=== PATIENT | female | born 1970 | race Caucasian/White ===

== ENCOUNTER 2024-03-07 22:38 | Inpatient (IN) | payer MEDICAID, SELFPAY ==
[2024-03-07 22:43] VITALS: BP 96/71; PULSE 80; RESP 18; TEMP 37; O2SAT 97; BMI 21.4
--- NOTE | 2024-03-07 23:19 | EX.ED.DYSGE1 ---
HPI History of Present Illness Chief Complaint: Substance Abuse Informant: patient Narrative Narrative: 53-year-old female presenting to the emergency room requesting detox from fentanyl. Patient has been a daily user for about the past 1-1/2 years. Prior to that she was clean for about 3 months following a detox program. She states she tries to use IV and participates in a exchange program in [place]. Sometimes she needs to skin pop. She is not currently working. Her mom has been supporting her which she recognizes as an enabler. She states she typically uses by herself as a self-medicating process. She states that for monetary reasons she can continue using. The last couple times she has tested her fentanyl it came back as tranc. Patient does not feel like she needed HIV test. She would like a nicotine patch. She has no pending legal issues and states she has not been picked up for about 5 years and her last charge was a gorman theft. Last fentanyl use was this morning. Patient is not currently on any prescription medications. She does note that she will occasionally use crack cocaine and has very rare alcohol use. [facility] Medical History Neuropathy Degenerative disc disease Hepatitis C Hepatitis B Chronic kidney disease (CKD) Allergy/AdvReac Type Severity Reaction Status Date / Time No Known Allergies Allergy Verified 03/07/24 22:41 Social History Smoking Status: Current every day smoker tobacco type: cigarettes ROS ROS ED Constitutional Constitutional ED: Denies chills, fever(s) or weight loss Eyes Eyes: Denies change in vision or diplopia ENT ENT ED: Denies ear pain, rhinorrhea or sore throat Cardiovascular Cardiovascular: Denies chest pain, orthopnea, palpitations or racing heartbeat Respiratory/Chest Respiratory/Chest: Denies cough, dyspnea or orthopnea Gastrointestinal Gastrointestinal: Denies abdominal pain, diarrhea, nausea or vomiting Genitourinary Genitourinary ED: Denies dysuria, hematuria or urinary frequency Musculoskeletal Musculoskeletal: Denies arthralgias or myalgias Integumentary Denies abscess or rash Neurologic Neurologic: Denies headache(s) or weakness Psychiatric Psychiatric: Denies anxiety, depression, suicidal ideation or suicidal thoughts Endocrine Endocrinology: Denies polydipsia, polyphagia or polyuria Allergic/Immunologic Allergic/Immunologic ED: Denies mouth swelling, tongue swelling or urticaria EXAM Physical Exam Const Vital Signs: 03/07/24 22:43 Temperature 98.6 F Temperature Source Temporal Pulse Rate 80 Respiratory Rate 18 Blood Pressure 96/71 Blood Pressure Mean 79 Pulse Ox 97 Oxygen Delivery Method Room Air Positive well nourished and well developed General Appearance ED: well developed HEENT Reports normocephalic, head/scalp atraumatic and moist mucous membranes Eyes PERRL and EOMs intact bilaterally Neck no lymphadenopathy, supple and no JVD Resp normal respiratory effort and clear to auscultation bilaterally Cardio regular rate, regular rhythm and no murmurs GI normal to inspection, nondistended, normoactive bowel sounds and non-tender Palpation: soft Back/Spine no CVA tenderness and normal ROM Extremity normal to inspection General Extremety ED: Negative for edema General Extremity: Negative for edema Neuro oriented x3 and CN's II-XII intact bilaterally Sensorium / Orientation: alert Motor Exam: strength 5/5 throughout Psych mental status grossly normal Mood & Affect: Negative for depressed or tearful Skin no rashes or lesions noted Skin Narrative: Patient with no obvious abscesses. She has chronic skin changes consistent with frequent injections on the forearms. Discharge Plan Dx/Rx/DC Orders Clinical Impression: Opiate addiction, Continuous tobacco abuse Disposition Disposition: Acute Care [facility]
[2024-03-07 23:37] LABS: Absolute Lymphocyte Count 1.63 X10^3/uL (0.83-4.51); Absolute Neutrophil Count 14.8 X10^3/uL (2.0-7.7); Basophil# 0.08 X10^3/uL; Basophil% 0.4 % (0-1); Hematocrit 40.3 % (37-47); Hemoglobin 13.4 g/dL (12.0-15.0); Lymphocyte # 1.63 X10^3/ul (0.83-4.51); Lymphocyte % 9.1 % (19-41); Mean Corp Hgb Conc 33.3 g/dL (32-36); Mean Corpuscular Hgb 30.1 pg (27.0-32.0); Mean Corpuscular Volume 90.6 fL (81-99); Mean Platelet Vol. 9.5 fl (6.2-12.0); Monocyte% 6.7 % (0-10); NRBC Flagged by Analyzer 0 % (0-5); Neutrophil # 14.82 X10^3/uL (2.7-7.7); Platelet Count 495 K/mm3 (150-450); RBC Distribution Width CV 12.9 % (11.6-14.6); RBC Distribution Width SD 42.5 fl (35.1-43.9); Red Blood Count 4.45 M/mm3 (4.2-5.4); White Blood Count 17.9 K/mm3 (4.4-11.0)
[2024-03-08 00:04] LABS: Alcohol, Blood (Medical)-Serum < 3.0 mg/dL
[2024-03-08 00:10] LABS: ALB/GLOB Ratio 0.7 RATIO (0.9-2.4); AST(SGOT) 18 U/L (15-37); Alanine Aminotransfer ALT/SGPT 27 U/L (13-56); Albumin, Serum 3.4 g/dL (3.2-5.0); Alkaline Phosphatase 90 U/L (45-117); Anion Gap 10 (5-15); BUN 9 mg/dL (7-18); BUN/Creat Ratio 10.5 RATIO (10-20); Calcium,Total 9.2 mg/dL (8.5-10.1); Chloride 98 mmol/L (98-107); Creatinine, Serum 0.86 mg/dL (0.55-1.02); EST Glomerular Filtration Rate 74 mL/min (>60); Est Glom Filt Rate - Afr Amer 89 mL/min (>60); Estimated Creatinine Clearance 59.83 ml/min; Glucose 163 mg/dL (74-106); Potassium 4.3 mmol/L (3.5-5.1); Protein, Total 8.4 g/dL (6.4-8.2); Sodium Level 132 mmol/L (136-145)
[2024-03-08 00:23] LABS: Internal QC Validated? YES +Cl - CLEAR BKGD; Pregnancy, Serum, hCG Quali. NEGATIVE Negative
[2024-03-08 00:39] VITALS: RESP 18
[2024-03-08 01:07] LABS: Color, Urine Yellow (Yellow); Glucose, Dipstick Normal (Normal); Ketone-Dipstick Negative (Negative); Leukocyte Esterase-Dipstick 500 /ul (Negative); Nitrite-Dipstick Negative (Negative); Occult Blood-Urine Negative /ul (Negative); Protein-Dipstick 15 mg/dl (Negative); Red Blood Cells-Urine 0 SEEN /hpf (0-5); Squamous Epithelial Cells - UA 0 SEEN /hpf (5-10); Urine Bilirubin Dipstick Negative (Negative); Urine Clarity Sl. Cloudy (Clear); Urine Urobilinogen Normal (Normal)
[2024-03-08 01:39] LABS: Bacteria 1+ /hpf (None Seen); Hyaline Cast 0-5 SEEN /lpf (0-5); Mucous, Urine 2+ /hpf (<or=2+); White Blood Cells 25-50 SEEN /hpf (0-5)
[2024-03-08 01:52] VITALS: PULSE 84; RESP 18; TEMP 36.1; O2SAT 98
[2024-03-08 01:53] LABS: Amphetamine Urine VISTA NEGATIVE (<1000 ng/mL); Barbiturate Urine VISTA NEGATIVE (< 200 ng/mL); Benzodiazepine Urine VISTA NEGATIVE (< 200 ng/mL)
[2024-03-08 01:54] LABS: Cocaine Urine VISTA POSITIVE (< 300 ng/mL); Ecstacy Urine VISTA NEGATIVE (< 500 ng/mL); Methadone Urine VISTA NEGATIVE (< 300 ng/mL); PCP Urine VISTA NEGATIVE (< 25 ng/mL); THC Urine VISTA NEGATIVE (< 50 ng/mL)
--- NOTE | 2024-03-08 02:13 | PCM.HP.STD ---
[facility] - General General Date of Admission: 03/08/24 Date of Service: 03/08/24 Chief Complaint: Wants Detox from Fentanyl and Crack Cocaine. HPI Narrative ROSEMARY BARLOW, is a 53 F with a past medical history of tobacco abuse, chronic hepatitis B/C, CKD; stage II, DDD, neuropathy, chronic opiate abuse; with Fentanyl and chronic Crack Cocaine abuse for the past ~18 months via IVDA and skin-popping who presents to [facility] ER complaining of wanting help with detoxification from Fentanyl and Crack. Ms. Barlow reports his symptoms began shortly after her last Fentanyl use on the morning of 03/07/2024. She went on to inform the ER physician that the last few times she was tested it came back positive for tranq which is Xylazine a horse tranquilizer that is not a controlled substance but is used to supplement the Fentanyl. She denies active legal issues at this time with her last legal issues occurred ~5 years ago with a charge for gorman theft. She denies any current pharmaceutical medications. There is no report of fever, chills, nausea, vomiting, diarrhea, constipation, abdominal pain, chest pain, palpitations or SOB. In the ER she was noted to have a UA positive for Acute Cystitis; without hematuria with a corresponding Leukocytosis of 17.9K present on admission complicated by a UDS positive for opiates and cocaine with Polysubstance Withdrawal and she was then admitted to the general medical floor for ongoing care for a stay that is expected to extend beyond 2 midnights. [facility] Medical History (Updated 03/08/24 @ 04:[address] Antonino Sellers DO) Neuropathy Degenerative disc disease Hepatitis C Hepatitis B Chronic kidney disease (CKD) Home Medications ?Medication ?Instructions ?Recorded ?Last Taken ?Type NK 03/08/24 Unknown History Allergy/AdvReac Type Severity Reaction Status Date / Time No Known Allergies Allergy Verified 03/07/24 22:41 Social History Smoking Status: Current every day smoker tobacco type: cigarettes ROS ROS Narrative Review of Systems: Constitutional: Patient denies fever or chills. Eyes: Patient denies changes in vision or discharge from eyes. ENT: Patient denies runny nose, sore throat or ear pain. Resp: Patient denies SOB or cough. CV: Patient denies chest pain, palpitations or heart racing. GI: Patient denies nausea, vomiting, diarrhea or constipation. : Patient denies dysuria, hematuria or urinary hesitancy/frequency. MSK: Patient admits to generalized weakness but she denies arthralgias or myalgias. Skin: Patient admits to previous IVDA and skin popping. She denies jaundice. Psych: Patient denies symptoms of uncontrolled depression or anxiety. Neuro: Patient denies headache, paresthesias or focal neurologic deficits. Allergy: Patient denies lip swelling or tongue swelling. Hematology: Patient denies easy bleeding or easy bruisability. Endocrinology: Patient denies polyuria, polydipsia or polyphagia. 14 point ROS otherwise negative except for positives noted above in HPI. Vital Signs Vital Signs Vital Signs: 03/07/24 22:43 03/08/24 00:39 03/08/24 01:52 Temperature 98.6 F 97 F L Temperature Source Temporal Pulse Rate 80 84 Respiratory Rate 18 18 18 Blood Pressure 96/71 Blood Pressure Mean 79 Pulse Ox 97 98 Oxygen Delivery Method Room Air Weight Weight: 117 lb 3.2 oz Body Mass Index (BMI) 21.4 Physical Exam Const alert, oriented x3, no apparent distress and average body habitus General Appearance: cooperative HEENT normocephalic, head/scalp atraumatic, hearing grossly normal bilaterally and moist oral mucous membranes Eyes PERRL and EOMs intact bilaterally Neck no lymphadenopathy Resp normal respiratory effort, no retractions, no use of accessory muscles and clear to auscultation bilaterally Cardio regular rate and regular rhythm GI normal to inspection, nondistended, normoactive bowel sounds, soft to palpation, non-tender and non-distended Extremity normal to inspection and full ROM Skin Skin Narrative: Patient has no evidence of rash or jaundice. Neuro oriented x3, CN's II-XII intact bilaterally, moves all extremities and no focal motor deficits Sensorium / Orientation: awake, alert, oriented to person, oriented to place and oriented to time Speech: speech normal Psych affect normal Results Medical Records Data Attestation: I reviewed the patient's medical records Lab / Micro Data Attestation: I reviewed the patient's lab results. 03/07/24 23:25 03/07/24 23:25 Labs: Laboratory Results - last 24 hr 03/07/24 23:25: WBC 17.9 H, RBC 4.45, Hgb 13.4, Hct 40.3, MCV 90.6, MCH 30.1, MCHC 33.3, RDW Std Deviation 42.5, RDW Coeff of [place] 12.9, Plt Count 495 H, MPV 9.5, Immature Gran % (Auto) 0.800, Neut % (Auto) 83.0 H, Lymph % (Auto) 9.1 L, [place] % (Auto) 6.7, Eos % (Auto) 0.0, Baso % (Auto) 0.4, Absolute Neuts (auto) 14.8 H, Absolute Lymphs (auto) 1.63, Nucleated RBC % 0, Sodium 132 L, Potassium 4.3, Chloride 98, Carbon Dioxide 24.0, Anion Gap 10, BUN 9, Creatinine 0.86, Estim Creat Clear Calc 59.83, Est GFR (MDRD) Af Amer 89, Est GFR (MDRD) Non-Af 74, BUN/Creatinine Ratio 10.5, Glucose 163 H, Calcium 9.2, Total Bilirubin 0.80, AST 18, ALT 27, Alkaline Phosphatase 90, Total Protein 8.4 H, Albumin 3.4, Globulin 5.0 H, Albumin/Globulin Ratio 0.7 L, Serum , Qual NEGATIVE, Ethyl Alcohol < 3.0 03/08/24 01:00: Urine Color Yellow, Urine Clarity Sl. Cloudy, Urine pH 6.0, Ur Specific [place] 1.020, Urine Protein 15 H, Urine Glucose (UA) Normal, Urine Ketones Negative, Urine Occult Blood Negative, Urine Nitrite Negative, Urine Bilirubin Negative, Urine Urobilinogen Normal, Ur Leukocyte Esterase 500 H, Urine RBC 0 SEEN, Urine WBC 25-50 SEEN, Ur Squamous Epith Cells 0 SEEN, Urine Bacteria 1+, Hyaline Casts 0-5 SEEN, Urine Mucus 2+, Urine Opiates Screen POSITIVE H, Urine Methadone Screen NEGATIVE, Ur Barbiturates Screen NEGATIVE, Ur Phencyclidine Scrn NEGATIVE, Ur Amphetamines Screen NEGATIVE, MDMA (Ecstasy) Screen NEGATIVE, U Benzodiazepines Scrn NEGATIVE, Urine Cocaine Screen POSITIVE H, U Cannabinoids Screen NEGATIVE, Ur Drug Screen Comment Assessment & Plan Assessment/Plan (1) Acute cystitis without hematuria: (2) Opiate withdrawal: (3) Cocaine abuse: (4) Continuous tobacco abuse: PLAN: Plan 1. Acute Cystitis; without hematuria with a corresponding Leukocytosis of 17.9K present on admission - Admit to general medical floor. Continue oral Bactrim DS begun in the ER and await culture and sensitivity data. 2. Acute Polysubstance Withdrawal in the setting of Chronic opiate abuse; with Fentanyl and chronic Crack Cocaine abuse for the past ~18 months via IVDA and skin-popping complicating #1 - Patient started on opiate withdrawal taper. Polysubstance Cessation was strongly encouraged. 3. Tobacco abuse - Tobacco Cessation will be strongly encouraged with Nicotine patch offered to control cravings. 4. Chronic hepatitis B/C - Noted. 5. CKD; stage II - Stable. 6. DDD - Noted. 7. Neuropathy - Noted. 8. DVT prophylaxis - Lovenox 40 mg sq daily plus SCD's. Total time: Approximately 55 minutes. Charges/Coding Visit Charges Inpatient E&M: 62352 Init Hosp L2
[2024-03-08] MEDS: Smz/Tmp Ds Tablet 1 TABLET PO ×3 (02:20→17:47)
[2024-03-08 03:08] LABS: Vista UDS pH Range 5
[2024-03-08 03:46] VITALS: BMI 21.4
[2024-03-08 03:51] VITALS: BP 133/78; PULSE 76; RESP 17; TEMP 37.1; O2SAT 96
[2024-03-08] MEDS: traZODone 100 MG Tablet PO ×2 (04:18→20:31)
[2024-03-08] MEDS: hydrOXYzine PAM 25 MG Capsule 50 MG PO ×2 (04:18→17:47)
[2024-03-08] MEDS: Buprenorphine HCl 2 MG TAB.SUBL SL ×3 (04:19→20:26)
[2024-03-08] MEDS: Dicyclomine 10 MG Capsule 20 MG PO ×2 (04:19→17:46)
[2024-03-08 06:56] LABS: Absolute Lymphocyte Count 1.78 X10^3/uL (0.83-4.51); Absolute Neutrophil Count 9.8 X10^3/uL (2.0-7.7); Basophil% 0.8 % (0-1); Hematocrit 40.7 % (37-47); Hemoglobin 13.5 g/dL (12.0-15.0); Lymphocyte # 1.78 X10^3/ul (0.83-4.51); Lymphocyte % 13.7 % (19-41); Mean Corp Hgb Conc 33.2 g/dL (32-36); Mean Corpuscular Volume 90.4 fL (81-99); Mean Platelet Vol. 9.8 fl (6.2-12.0); Monocyte# 1.22 X10^3/uL; Monocyte% 9.4 % (0-10); NRBC Flagged by Analyzer 0 % (0-5); Neutrophil # 9.81 X10^3/uL (2.7-7.7); Neutrophil % 75.1 % (47-70); Platelet Count 487 K/mm3 (150-450)
[2024-03-08 07:22] LABS: ALB/GLOB Ratio 0.7 RATIO (0.9-2.4); AST(SGOT) 19 U/L (15-37); Alanine Aminotransfer ALT/SGPT 25 U/L (13-56); Albumin, Serum 3.4 g/dL (3.2-5.0); Alkaline Phosphatase 92 U/L (45-117); Anion Gap 8 (5-15); BUN 6 mg/dL (7-18); BUN/Creat Ratio 10.3 RATIO (10-20); Calcium,Total 9.6 mg/dL (8.5-10.1); Chloride 102 mmol/L (98-107); Creatinine, Serum 0.58 mg/dL (0.55-1.02); EST Glomerular Filtration Rate 115 mL/min (>60); Est Glom Filt Rate - Afr Amer 139 mL/min (>60); Estimated Creatinine Clearance 88.72 ml/min; Globulin 5.2 g/dL (2.2-4.2); Glucose 160 mg/dL (74-106); Magnesium 2.1 mg/dL (1.6-2.6); Potassium 3.7 mmol/L (3.5-5.1); Protein, Total 8.6 g/dL (6.4-8.2); Sodium Level 137 mmol/L (136-145)
[2024-03-08] MEDS: cloNIDine HCl 0.1 MG Tablet PO ×2 (07:56→17:47)
[2024-03-08] MEDS: Lactobacillis Acidophilus 1 CAP PO ×4 (07:56→20:27)
[2024-03-08 08:50] VITALS: BP 142/84; PULSE 77; RESP 16; TEMP 36.9; O2SAT 95
--- NOTE | 2024-03-08 11:29 | PN.HOSP_ITS ---
Reason for Visit Reason for Visit: Diagnoses Opioid use, unspecified with withdrawal (03/08/24) Cocaine abuse, uncomplicated (03/08/24) Acute cystitis without hematuria (03/08/24) Tobacco use (03/08/24) Subjective Subjective Saw patient at bedside this morning. Patient was sitting up comfortably in bed, in no acute distress. Her main concern this morning was that she had moderate nasal congestion; she takes a nasal spray at home and was asking for this. States her withdrawal symptoms have been fairly well-controlled with the Subutex taper and other as needed medications. No other acute concerns this morning. Objective Data Objective Data Vital Signs: Vital Signs Temp Pulse Resp BP Pulse Ox O2 Del Method 98.4 F 77 16 142/84 H 95 Room Air 03/08/24 08:50 03/08/24 08:50 03/08/24 08:50 03/08/24 08:50 03/08/24 08:50 03/08/24 08:50 Oxygen Delivery Method Room Air Weight: 53.184 kg Body Mass Index (BMI) 21.4 Intake & Output: Intake and Output for Last 24 Hours 03/06/24 03/07/24 03/08/24 23:59 23:59 23:59 Intake Total 100 / 100 Balance 100 / 100 Lab / Micro Data 03/08/24 06:07 03/08/24 06:07 Labs: Laboratory Results - last 24 hr 03/07/24 23:25: WBC 17.9 H, RBC 4.45, Hgb 13.4, Hct 40.3, MCV 90.6, MCH 30.1, MCHC 33.3, RDW Std Deviation 42.5, RDW Coeff of [place] 12.9, Plt Count 495 H, MPV 9.5, Immature Gran % (Auto) 0.800, Neut % (Auto) 83.0 H, Lymph % (Auto) 9.1 L, [place] % (Auto) 6.7, Eos % (Auto) 0.0, Baso % (Auto) 0.4, Absolute Neuts (auto) 14.8 H, Absolute Lymphs (auto) 1.63, Nucleated RBC % 0, Sodium 132 L, Potassium 4.3, Chloride 98, Carbon Dioxide 24.0, Anion Gap 10, BUN 9, Creatinine 0.86, Estim Creat Clear Calc 59.83, Est GFR (MDRD) Af Amer 89, Est GFR (MDRD) Non-Af 74, BUN/Creatinine Ratio 10.5, Glucose 163 H, Calcium 9.2, Total Bilirubin 0.80, AST 18, ALT 27, Alkaline Phosphatase 90, Total Protein 8.4 H, Albumin 3.4, G lobulin 5.0 H, Albumin/Globulin Ratio 0.7 L, Serum , Qual NEGATIVE, Ethyl Alcohol < 3.0 03/08/24 01:00: Urine Color Yellow, Urine Clarity Sl. Cloudy, Urine pH 6.0, Ur Specific [place] 1.020, Urine Protein 15 H, Urine Glucose (UA) Normal, Urine Ketones Negative, Urine Occult Blood Negative, Urine Nitrite Negative, Urine Bilirubin Negative, Urine Urobilinogen Normal, Ur Leukocyte Esterase 500 H, Urine RBC 0 SEEN, Urine WBC 25-50 SEEN, Ur Squamous Epith Cells 0 SEEN, Urine Bacteria 1+, Hyaline Casts 0-5 SEEN, Urine Mucus 2+, Urine Opiates Screen POSITIVE H, Urine Methadone Screen NEGATIVE, Ur Barbiturates Screen NEGATIVE, Ur Phencyclidine Scrn NEGATIVE, Ur Amphetamines Screen NEGATIVE, MDMA (Ecstasy) Screen NEGATIVE, U Benzodiazepines Scrn NEGATIVE, Urine Cocaine Screen POSITIVE H, U Cannabinoids Screen NEGATIVE, Ur Drug Screen Comment 03/08/24 06:07: WBC 13.0 H, RBC 4.50, Hgb 13.5, Hct 40.7, MCV 90.4, MCH 30.0, MCHC 33.2, RDW Std Deviation 43.0, RDW Coeff of [place] 13.0, Plt Count 487 H, MPV 9.8, Immature Gran % (Auto) 1.000 H, Neut % (Auto) 75.1 H, Lymph % (Auto) 13.7 L , [place] % (Auto) 9.4, Eos % (Auto) 0.0, Baso % (Auto) 0.8, Absolute Neuts (auto) 9.8 H, Absolute Lymphs (auto) 1.78, Nucleated RBC % 0, Sodium 137, Potassium 3.7, Chloride 102, Carbon Dioxide 27.0, Anion Gap 8, BUN 6 L, Creatinine 0.58, Estim Creat Clear Calc 88.72, Est GFR (MDRD) Af Amer 139, Est GFR (MDRD) Non-Af 115, BUN/Creatinine Ratio 10.3, Glucose 160 H, Calcium 9.6, Phosphorus 3.0, Magnesium 2.1, Total Bilirubin 0.70, AST 19, ALT 25, Alkaline Phosphatase 92, T otal Protein 8.6 H, Albumin 3.4, Globulin 5.2 H, Albumin/Globulin Ratio 0.7 L, TSH 1.020 Physical Exam Const alert, oriented x3, no apparent distress and average body habitus Constitutional Narrative: Middle-age female, unkempt appearing, mildly fatigued appearing, otherwise sitting up comfortably in bed, conversing normally, in no acute distress. General Appearance: cooperative and comfortable HEENT normocephalic, head/scalp atraumatic, hearing grossly normal bilaterally, nasal mucous membranes and turbinates normal and moist oral mucous membranes Eyes PERRL, EOMs intact bilaterally and conjunctivae normal Neck full ROM Chest inspection of chest normal Resp normal respiratory effort, normal air movement, no use of accessory muscles and clear to auscultation bilaterally Cardio regular rate, regular rhythm, no murmurs and peripheral pulses 2+ throughout GI normal to inspection, nondistended, normoactive bowel sounds, soft to palpation, non-tender and non-distended Back/Spine normal ROM Extremity normal to inspection, full ROM and no pedal edema Skin Skin Narrative: Skin changes consistent with frequent injections on the forearms. No obvious abscesses noted. Neuro moves all extremities and no focal motor deficits Speech: speech normal Psych mental status grossly normal Assessment & Plan Assessment/Plan (1) Opiate addiction: (2) Opiate withdrawal: (3) Cocaine abuse: (4) Acute cystitis without hematuria: (5) Continuous tobacco abuse: PLAN: Plan Patient is a 53-year-old female who presented to [facility] ED on 03/07/2024 for opiate detoxification. 1. Chronic opiate abuse with withdrawal and desire for detoxification, polysubstance abuse ? Case management and addiction medicine following. UDS positive for opiates and cocaine. Patient reported daily IV fentanyl abuse and chronic crack cocaine abuse for the past 18 months. Treating with Subutex taper and other as needed medications per opiate withdrawal order set with good control of symptoms. Per addiction medicine, patient reports going through outpatient treatment in the past and this did not help her so she is not interested in treatment after discharge. 2. Concern for acute cystitis ? UA on admit showed 500 leukocyte esterase, negative nitrites and 1+ bacteria. Patient does report mild UTI type symptoms. Urine culture pending. Continue treatment with p.o. Bactrim for now. 3. Tobacco abuse ? Current smoker. Treating with nicotine patch while inpatient per patient request. 4. Reported history of chronic hepatitis B and C ? LFTs normal on admission. No inpatient needs, recommend outpatient follow-up. DVT prophylaxis: Lovenox CODE STATUS: Full code, verified Expected disposition: Home, 2 to 3 days Total clinical time spent by myself addressing the patient's medical issues, reviewing all the data, and collaborating with patient's care team: 25 minutes. Charges/Coding Visit Charges Inpatient E&M: 31815 Subs Hosp L1
--- NOTE | 2024-03-08 12:18 | ADDICTION ---
Met with Pt to complete RAMP assessments. Pt was A&Ox4. All assessments complete. Pt reports that she has been through tx so many times and they don't do anything for me and she is not interested in outpatient tx. She reports that she will get back to work and go to some meetings.
[2024-03-08] MEDS: Gabapentin 300 MG Capsule PO (12:40)
[2024-03-08] MEDS: Methocarbamol 750 MG Tablet PO ×2 (12:40→20:31)
[2024-03-08] MEDS: Fluticasone 0.05% 1 SPRAY NASAL.SRY NASAL (12:44)
[2024-03-08 15:00] VITALS: BP 138/86; PULSE 88; RESP 18; TEMP 36.8; O2SAT 98
[2024-03-08 20:00] VITALS: BP 127/85; PULSE 63; RESP 18; TEMP 36.6; O2SAT 98
[2024-03-09] VITALS: BP 146/94; PULSE 67; RESP 16; TEMP 36.7; O2SAT 96
[2024-03-09 04:08] VITALS: BP 145/89; PULSE 70; RESP 16; TEMP 36.7; O2SAT 93
[2024-03-09] MEDS: Acetaminophen 325 MG Tablet 650 MG PO (04:27)
[2024-03-09] MEDS: Buprenorphine HCl 2 MG TAB.SUBL SL ×2 (04:27→12:30)
[2024-03-09] MEDS: Dicyclomine 10 MG Capsule 20 MG PO (04:27)
[2024-03-09] MEDS: Fluticasone 0.05% 1 SPRAY NASAL.SRY NASAL (06:41)
[2024-03-09 07:38] VITALS: BP 151/89; PULSE 71; RESP 16; TEMP 36.9; O2SAT 97
[2024-03-09] MEDS: Smz/Tmp Ds Tablet 1 TABLET PO (07:40)
[2024-03-09] MEDS: Lactobacillis Acidophilus 1 CAP PO (09:39)
--- NOTE | 2024-03-09 11:55 | DCINST_ITS ---
Discharge Instructions Follow Up Care Test Results: Test results from this visit will be discussed in further detail at your follow- up appointment, if applicable. Discharge Plan Admission Admit Date/Time: 03/08/24 03:00 Attending Provider: Sean Cunningham Primary Care Provider: Care Physician,No Primary Consulting Providers: Antonino Sellers Discharge Orders/Prescriptions Prescriptions: No Action NK Referrals / Follow Up: Care Physician,No Primary [Primary Care Provider] -
--- NOTE | 2024-03-09 11:55 | DS.PCM_ITS ---
Providers Date of Admission: 03/08/24 Date of Discharge: 03/09/24 Primary Care Physician: No Primary Care Phys Reason For Visit: ACUTE OPIATE DETOX & UTI Diagnosis Discharge Diagnosis (1) Opiate addiction: Status: Acute Code(s): F11.20 - Opioid dependence, uncomplicated (2) Opiate withdrawal: Status: Acute Code(s): F11.93 - Opioid use, unspecified with withdrawal (3) Cocaine abuse: Status: Acute Code(s): F14.10 - Cocaine abuse, uncomplicated (4) Acute cystitis without hematuria: Status: Acute Code(s): N30.00 - Acute cystitis without hematuria (5) Continuous tobacco abuse: Status: Acute Code(s): Z72.0 - Tobacco use Medications at Discharge Home Medications NK 03/08/24 Hospital Course Operations None Procedures None Summary of Care Provided Minutes Spent on Discharge: 25 Hospital Course: Patient is a 53-year-old female who presented to [facility] ED on 03/07/2024 for opiate detoxification. Hospital course as noted below. Patient discharged home in stable condition on 03/09. 1. Chronic opiate abuse with withdrawal and desire for detoxification, polysubstance abuse ? Case management and addiction medicine followed. UDS positive for opiates and cocaine. Patient reported daily IV fentanyl abuse and chronic crack cocaine abuse for the past 18 months. Treated with Subutex taper and other as needed medications per opiate withdrawal order set with good control of symptoms. Per addiction medicine, patient reports going through outpatient treatment in the past and this did not help her so she was not interested in treatment after discharge. Given minimal withdrawal symptoms, patient was okay for discharge on afternoon of 03/09. 2. Concern for acute cystitis ? UA on admit showed 500 leukocyte esterase, negative nitrites and 1+ bacteria. However, urine culture showed no growth. Treated with Bactrim while inpatient, no need for further antibiotics on discharge. 3. Tobacco abuse ? Current smoker. Treated with nicotine patch while inpatient per patient request. 4. Reported history of chronic hepatitis B and C ? LFTs normal on admission. No inpatient needs, recommend outpatient follow-up. Total clinical time spent by myself addressing the patient's medical issues, reviewing all the data, and collaborating with patient's care team: 25 minutes. Physical Exam Const alert, oriented x3, no apparent distress and average body habitus Constitutional Narrative: Middle-age female, somewhat unkempt appearing, energy improved from admission, otherwise sitting up comfortably in bed, conversing normally, in no acute distress. General Appearance: cooperative and comfortable HEENT normocephalic, head/scalp atraumatic, hearing grossly normal bilaterally, nasal mucous membranes and turbinates normal and moist oral mucous membranes Eyes PERRL, EOMs intact bilaterally and conjunctivae normal Neck full ROM Chest inspection of chest normal Resp normal respiratory effort, normal air movement, no use of accessory muscles and clear to auscultation bilaterally Cardio regular rate, regular rhythm, no murmurs and peripheral pulses 2+ throughout GI normal to inspection, nondistended, normoactive bowel sounds, soft to palpation, non-tender and non-distended Back/Spine normal ROM Extremity normal to inspection, full ROM and no pedal edema Skin Skin Narrative: Skin changes consistent with frequent injections on the forearms. No obvious abscesses noted. Stable. Neuro moves all extremities and no focal motor deficits Speech: speech normal Psych mental status grossly normal Weight / BMI Weight Weight: 53.184 kg Body Mass Index (BMI) 21.4 ABG / Lab / Microbiology Data 03/08/24 06:07 03/08/24 06:07 Microbiology: Microbiology 03/08/24 01:00 Urine, Clean Catch Urine Culture - Preliminary Culture exhibits no growth. Meaningful Use Info Meaningful Use Meaningful Use Diagnoses (Choose all that apply): None applicable Ischemic Stroke Statin Dosing Therapy Reference: STATIN DOSE THERAPY REFERENCE: * Patients > 75 years receive moderate or high dose statin therapy. * Patients 75 years or YOUNGER should receive HIGH intensity statin dose unless contraindicated. You will be required to document reason for non-treatment if statin daily dose does not meet guidelines. HIGH DOSE STATIN THERAPY DAILY Atorvastatin > than or = to 40 mg Rosuvastatin > than or = to 20 mg Amlodipine + Atorvastatin > than or = to 2.5/40 mg Ezetimibe + Simvastatin 10/80 mg Simvastatin 80mg Discharge Plan Admission Admit Date/Time: 03/08/24 03:00 Primary Reason for Your Visit: Opiate detox Attending Provider: Sean Cunningham Primary Care Provider: Care Physician,No Primary Consulting Providers: Antonino Sellers Discharge Orders/Prescriptions Prescriptions: No Action NK Referrals / Follow Up: Care Physician,No Primary [Primary Care Provider] - Disposition Disposition (needs filled in before D/C Order can be placed): Home, Self Care Charges/Coding Visit Charges Inpatient E&M: 17921 Disch Hosp
--- NOTE | 2024-03-09 11:55 | PCM.DC ---
Discharge Instructions Diet Discharge Diet: No restrictions Activity Discharge Activity: No Restrictions Follow Up Care Test Results: Test results from this visit will be discussed in further detail at your follow-up appointment, if applicable. Discharge Plan Admission Admit Date/Time: 03/08/24 03:00 Primary Reason for Your Visit: Opiate detox Attending Provider: Sean Cunningham Primary Care Provider: Care Physician,No Primary Consulting Providers: Antonino Sellers Discharge Orders/Prescriptions Prescriptions: No Action NK Referrals / Follow Up: Care Physician,No Primary [Primary Care Provider] - Disposition Disposition (needs filled in before D/C Order can be placed): Home, Self Care
== END 2024-03-09 02:26 | disposition home or self-care (01) | DRG 773 ==
LOC: ED 23:43 → MS3 03-08 03:09
PROVIDERS: Admitting Provider Internal Medicine; Emergency Provider Emergency Medicine; Visit Provider Hospitalist
DX: F11.23 Opioid dependence with withdrawal (principal); F14.10 Cocaine abuse, uncomplicated; F17.210 Nicotine dependence, cigarettes, uncomplicated; N30.00 Acute cystitis without hematuria; Z86.19 Personal history of other infectious and parasitic diseases
CPT/HCPCS: 36415; 80053; 80307; 81001; 82077; 83735; 84100; 84443; 84703; 85025; 87086; 94668; 99283; 99406